=== PATIENT | female | born 2005 | race Caucasian/White ===

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

== ENCOUNTER 2024-03-01 15:38 | Emergency (ER) | payer OTHER ==
[2024-03-01 16:10] LABS: Bilirubin Negative (Negative); Blood, Urine Negative (Negative); Clarity Clear (Clear); Glucose, Urine (Dipstick) Negative (Negative); Ketone, Urine Trace mg/dL (Negative); Leukocyte Negative (Negative); Nitrite Negative (Negative); Protein, Urine (Dipstick) 100 mg/dL (Neg-Trace); Urobilinogen 0.2 mg/dL (Less than 2)
[2024-03-01 16:11] LABS: Pregnancy Test - Urine (BHCG) Negative (Negative); Pregu Control Background? CLEAR/WHITE (CLR/WHITE); Pregu Control Bar Appear? YES (CONTROL BAR); Specific Gravity 1.028 (1.002-1.036); Specific Gravity, Urine 1.028 (1.002-1.036)
[2024-03-01 16:15] LABS: Bacteria/HPF 2+ HPF (None Seen); CAUTI Indications for Culture Dysuria,urgency,freq; Mucous/LPF 2+ LPF (<2+); RBC/HPF None Seen HPF (0-3); Squamous Epithelial 0-3 HPF (0-3); WBC/HPF 0-3 HPF (0-3)
[2024-03-01 16:16] LABS: Urine Culture Reflex No No
== END 2024-03-01 16:29 | disposition home or self-care (01) ==
LOC: BURERS 15:38
DX: N83.291 Other ovarian cyst, right side (principal); R10.2 Pelvic and perineal pain
CPT/HCPCS: 81001; 81025; 99284